=== PATIENT | female | born 1990 | race African-American/Black ===

== ENCOUNTER → 2022-08-04 09:13 | Outpatient (CLI) | payer BC, SELFPAY ==
--- NOTE | ~2022-08-04 | US_ITS ---
US axilla BI 08/04/2022 09:50 Indication: Palpable bilateral axillary abnormalities. Procedure: High-resolution ultrasound of the axilla bilaterally Comparison: No prior studies for comparison. Findings: Normal heterogeneous echotexture is present throughout both axilla without evidence for dis crete solid or cystic mass. Impression: 1: Normal bilateral axillary ultrasound. No discrete mass. Reviewed, dictated and finalized at location A. Impression: 1: Normal bilateral axillary ultrasound. No discrete mass.
== END ==
PROVIDERS: PCP Family Medicine; Visit Provider Nurse Practitioner
DX: R59.0 Localized enlarged lymph nodes (principal)
CPT/HCPCS: 76882

== ENCOUNTER 2023-12-30 10:14 | Outpatient (CLI) | payer BC, SELFPAY ==
--- NOTE | ~2023-12-30 | US_ITS ---
EXAMINATION: US axilla BI INDICATION: Localized enlarged lymph nodes TECHNIQUE: Bilateral axillary ultrasound is performed. COMPARISON: 08/04/2022 FINDINGS: No suspicious cystic or solid mass is identified in either axilla to correspond with the ar ea of clinical concern. There are benign-appearing lymph nodes of the left axilla. IMPRESSION: 1. No specific sonographic correlate is identified for the reported palpable abnormality of concern. Further evaluation at this time should be based on clinical assessment. Continued follow-up physical examination is recommended. Reviewed, dictated and finalized at location B. [employer] ASSIST[employer] IMPRESSION: 1. No specific sonographic correlate is identified for the reported palpable ab normality of concern. Further evaluation at this time should be based on clinic al assessment. Continued follow-up physical examination is recommended.
== END 2023-12-30 10:15 ==
LOC: MICIMG 10:15
PROVIDERS: PCP Family Medicine; Visit Provider Nurse Practitioner
DX: R59.0 Localized enlarged lymph nodes (principal)
CPT/HCPCS: 76882